=== PATIENT | female | born 1980 | race Caucasian/White ===

== ENCOUNTER 2018-05-12 01:45 | Outpatient (CLI) | payer OTHER, SELFPAY ==
[2018-05-12 11:21] LABS: Bilirubin Negative (Negative); Blood Moderate (Negative); Clarity Clear; Glucose Negative (Negative); Ketones Trace mg/dL (Negative); Leukocyte Esterase Negative (Negative); Nitrite Negative (Negative); Urobilinogen 0.2 EU/dL (Up TO 0.2)
[2018-05-12 11:23] LABS: Absolute Basophil Count 0.04 k/cumm (0.0-0.2); Absolute Eosinophil Count 0.39 k/cumm (0.0-0.7); Absolute Lymphocyte Count 1.63 k/cumm (1.2-3.4); Absolute Monocyte Count 0.41 k/cumm (0.11-0.7); Absolute Neutrophil Count 3.05 k/cumm (1.2-6.7); Basophils % 0.7; Eosinophils % 7.1; HCT 45.5 % (36.0-46.0); HGB 14.9 g/dL (12.0-15.5); Lymphocytes % 29.5; Mean Corp. HGB Concentration 32.7 g/dL (32.0-36.0); Mean Corpuscular Hemoglobin 30.2 pg (27.0-33.0); Mean Corpuscular Volume 92.1 fL (80-95); Mean Platelet Volume 10.1 fL (8.0-11.0); Monocytes % 7.4; Neutrophils % 55.3; Platelet Count 297 x1000/uL (130-400); RBC 4.94 m/cumm (4.00-5.20); RBC Distribution Width 13.3 % (11.7-14.6); White Blood Cell Count 5.52 k/cumm (4.4-10.8)
[2018-05-12 11:32] LABS: ALT 20 U/L (12-78); AST 15 U/L (15-37); Albumin 3.9 g/dL (3.4-5.0); Alkaline Phosphatase 66 U/L (46-116); Anion Gap 10.7 mmol/L (3-11); BUN 14 mg/dL (7-18); Bacteria Few HPF (Negative); Bilirubin, Total 0.5 mg/dL (0.2-1.0); CO2 25.3 mmol/L (21.0-32.0); CREATININE 1.01 mg/dL (0.55-1.02); Calcium 9.1 mg/dL (8.5-10.1); Casts Negative LPF (Negative); Chloride 104 mmol/L (98-107); Crystals Few Amorphous HPF (Negative); Epithelial Cells Moderate HPF (Negative); Glucose 91 mg/dL (70-100); Mucus Trace (Negative); Potassium 4.3 mmol/L (3.5-5.1); RBC 20-50 (0-2); Sodium 140 mmol/L (136-145); TSH (W/Ref FT4) 14.71 uIU/mL (0.358-3.74); Total Protein 6.9 g/dL (6.4-8.2); WBC 0-2 HPF (0-5)
[2018-05-12 11:33] LABS: C & S Indicated? Yes
[2018-05-12 11:49] LABS: FREE T4 0.78 ng/dL (0.76-1.46)
== END 2018-05-12 02:05 ==
PROVIDERS: PCP Family Medicine; Visit Provider Family Medicine
DX: R53.83 Other fatigue (principal)
CPT/HCPCS: 36415; 80053; 81003; 81015; 84439; 84443; 85025; 87086

== ENCOUNTER 2018-06-18 02:27 | Outpatient (CLI) | payer OTHER, SELFPAY ==
[2018-06-18 10:38] LABS: TSH 1.47 uIU/mL (0.358-3.74)
== END 2018-06-18 02:47 ==
PROVIDERS: PCP Family Medicine; Visit Provider Family Medicine
DX: E03.9 Hypothyroidism, unspecified (principal)
CPT/HCPCS: 36415; 84443

== ENCOUNTER 2018-10-15 18:19 | Emergency (ER) | payer OTHER, SELFPAY ==
[2018-10-15 18:24] VITALS: BP 108/93; PULSE 113; RESP 18; TEMP 36.5; O2SAT 97
--- NOTE | 2018-10-15 18:53 | W.ED.GENAD ---
Discharge Plan Disposition Patient Disposition: HOME Condition: Stable Discharge Details Chief Complaint: Headache Clinical Impression: Headache, Left facial pain Primary Care Provider: Johnny Sampson ED Provider: Coty West Home Meds and New Rx's Prescriptions: New amoxicillin-pot clavulanate [Augmentin] 875-125 mg tablet 1 tab PO BID 10 Days Qty: 20 RF: 0 fluticasone propionate [Flonase Allergy Relief] 50 mcg/actuation spray,suspension 1 spray YOGI DAILY Qty: 15.8 RF: 0 Continued medroxyprogesterone [Depo-Provera] 150 mg/mL suspension 150 mg IM Q 12 WEEKS Qty: 1 RF: 3 levothyroxine 100 mcg tablet 100 mcg PO DAILY Qty: 30 RF: 11 Discharge Instructions Instructions: Sinusitis (ED), General Headache (ED) Additional Instructions: Alternate Tylenol and Motrin as needed and directed for pain. Take the antibiotics until finished. Use the Flonase nasal spray as directed. Follow-up with your primary care doctor on Thursday for reevaluation. Return immediately to the emergency department with any worsening or new concerning symptoms per Discharge Data Discharge Date/Time-TO BE ENTERED AT DEPARTURE: 10/15/18 21:00 Discharge Physician: Coty West Medical Decision Making 38-year-old female with a history of hypothyroidism and fatigue who presents with left-sided frontal headache near her left inner eyebrow for the past 5 days. It is worse with bending forward and palpation. Denies fever, headache on the top of her head, neck pain. Vitals within normal limits. Heart rate on arrival 110s, but this improved to 80s during my evaluation in room. Patient appears uncomfortable but nontoxic. She has exquisite tenderness to palpation and mild edema to the left frontal sinus. She has bilateral photophobia but worse on the left. No other focal deficits. No meningeal signs. Discussed with patient at length that her presentation appears more consistent with a possible sinus source, but due to her photophobia, differential could possibly include migraine. Denies neck pain or diffuse head pain as it does not appear consistent with tension headache. She does admit to recent diarrhea and cutting back on her caffeine intake, so this possibly could be dehydration or vasodilation. She denies fever or neck pain and has no meningeal signs, so does not appear consistent with meningitis. She denies significant sudden onset or thunderclap quality so does not appear consistent with subarachnoid hemorrhage. Will place an IV, bolus IV fluids, labs, urine and CT head. Will give a dose of Compazine and Benadryl. Will hold on Toradol until CT head resulted. 1999 -- Pt feels a little better but still with some headache. Will finish 1 liter IVF and if CT head negative, will give dose of toradol. Case d/w pt that this could be sinus infection and if she improves and CT head negative, will discharge to home with augmentin and flonase. 1999 -- Case endorsed to Dr. Bedoya to follow-up on labs and CT imaging and patient response to medications with final disposition. HPI General Mode of arrival: ambulatory. Date/Time Provider Initiated Documentation: 10/15/18 18:21. Limitations to Documentation: no limitations. Information obtained by: patient. HPI Narrative: Patient is a 38-year-old female with a history of hypothyroidism, fatigue who presents with left frontal headache for the past 5 days. She describes it as a constant dull pressure and an intermittent squeezing pain that is within her left inner eyebrow. She states it is worse to palpation and when bending forward. She denies any history of headaches. She denies fever, nasal discharge, headache on the top of her head, neck pain, blurry vision, nausea, vomiting, unilateral numbness or weakness or rash. She has a history of sinus problems and states she took Claritin-D for this without relief. She also denies relief with Excedrin Migraine. She also states that she had been drinking 2-3 cups of coffee daily but that she cut back to 1 cup daily 1 week ago. Related Data Home Medications Medication Instructions Recorded Confirmed medroxyprogesterone 150 mg/mL 150 mg IM Q 12 WEEKS #1 vial 03/26/18 09/10/18 intramuscular suspension levothyroxine 100 mcg tablet 100 mcg PO DAILY #30 tab 05/21/18 09/10/18 amoxicillin-pot clavulanate 1 tab PO BID 10 Days #20 tab 10/15/18 [Augmentin] fluticasone propionate [Flonase 1 spray YOGI DAILY #15.8 gm 10/15/18 Allergy Relief] Previous Rx's Medication Instructions Recorded medroxyprogesterone 150 mg/mL 150 mg IM Q 12 WEEKS #1 vial 03/26/18 intramuscular suspension levothyroxine 100 mcg tablet 100 mcg PO DAILY #30 tab 05/21/18 amoxicillin-pot clavulanate 1 tab PO BID 10 Days #20 tab 10/15/18 [Augmentin] fluticasone propionate [Flonase 1 spray YOGI DAILY #15.8 gm 10/15/18 Allergy Relief] Allergies Allergy/AdvReac Type Severity Reaction Status Date / Time No Known Allergies Allergy Unverified 09/10/18 15:07 General Stated Complaint: Headache JOHNNY: 3 Review of Systems Review of Systems All systems reviewed & are unremarkable except as noted in HPI and below Constitutional Reports as per HPI, Denies chills, Denies fever(s) and Reports headache(s) Eyes Denies blurry vision ENT Denies dizziness, Reports headache(s), Denies sore throat and Denies throat swelling Cardiovascular Denies chest pain and Denies dyspnea Respiratory Denies cough and Denies dyspnea Gastrointestinal Denies abdominal pain, Denies diarrhea and Denies vomiting Genitourinary Denies hematuria and Denies dysuria Musculoskeletal Denies back pain and Denies numbness Integumentary/Breasts Denies lesions and Denies rash Neurologic Denies dizziness, Reports headache(s), Denies focal weakness and Denies numbness Allergic/Immunologic Denies throat swelling [facility] Medical History Hypothyroidism (Chronic) Fatigue (Acute) Contraceptive surveillance (Acute) Surgical History History of pyloric stenosis as a child (Acute) Family History Mother Thyroid disorder Social History Smoking/Tobacco Use Status: Never Alcohol Intake: never Substance use type: does not use Do you feel safe at home: Yes Do you feel safe in your relationship?: Yes History History 4 Para 2 Hx # Term Pregnancies Multiple births Hx # Pregnancies Ectopic pregnancies AB induced 1 Hx Number of Living Children 2 AB spontaneous 1 Exam Const General: cooperative and healthy appearing Orientation: alert and awake HENMT Head: normal to inspection Ears: hearing grossly normal bilaterally, external ears normal and TM's normal bilaterally General nose exam: external nose normal Face and sinus: sinuses nontender (exquisitely tender with mild edema L frontal sinus) Mouth: oral mucosae normal Teeth and gingiva: dentition normal Throat: posterior oropharynx normal Eyes General: appearance normal, both eyes and all related structures Eyelids: eyelids normal Pupils: PERRL EOM: EOM intact bilaterally Direct ophthalmoscopy: photophobia (bilateral, worse on left) Neck Neck: normal visual inspection Lymphatic: no lymphadenopathy noted Chest Chest: normal inspection of the chest Resp Effort & Inspection: normal respiratory effort and able to speak in complete sentences Auscultation: clear to auscultation bilaterally Cardio Rate: regular rate Rhythm: regular rhythm GI Inspection: normal to inspection Palpation: soft, not firm, no guarding, no hepatosplenomegaly, no masses and nontender Auscultation: normal bowel sounds Skin General skin exam: no rashes or lesions noted Neuro General: alert, awake, oriented x3, moves all extremities, no meningeal signs and no focal motor deficits Cognition: normal cognition Speech: speech normal Gait: normal gait Motor: muscle tone normal throughout and strength 5/5 throughout Sensory Exam: no sensory deficits noted Extrem General: normal to inspection, full ROM and normal capillary refill Psych Appearance: grossly normal Mental Status: mental status grossly normal Speech and Movement: speech and movement normal Affect: normal affect Thought Process: normal Course Vital Signs Temperature 97.7 F 10/15/18 18:24 Pulse 113 H 10/15/18 18:24 Respiratory Rate 18 10/15/18 18:24 Blood Pressure 108/93 H 10/15/18 18:24 Pulse Oximetry 97 10/15/18 18:24 Temperature 97.7 F 10/15/18 18:24 Temperature Source Temporal Artery Scan 10/15/18 18:24 Pulse 113 H 10/15/18 18:24 Respiratory Rate 18 10/15/18 18:24 Respiratory Effort Non-Labored 10/15/18 18:27 Blood Pressure 108/93 H 10/15/18 18:24 Blood Pressure Position Sitting 10/15/18 18:24 Pulse Oximetry 97 10/15/18 18:24 Oxygen Delivery Method Room Air 10/15/18 18:24 Oxygen Flow Rate 0 10/15/18 18:24 Pain Level 4 10/15/18 18:24
--- NOTE | 2018-10-15 18:56 | ED.GENADUL_ITS ---
Discharge Plan Disposition Patient Disposition: HOME Condition: Stable Discharge Details Chief Complaint: Headache Clinical Impression: Headache, Left facial pain Primary Care Provider: Johnny Sampson ED Provider: Coty [facility] Home Meds and New Rx's Prescriptions: New amoxicillin-pot clavulanate [Augmentin] 875-125 mg tablet 1 tab PO BID 10 Days Qty: 20 RF: 0 fluticasone propionate [Flonase Allergy Relief] 50 mcg/actuation spray,suspension 1 spray YOGI DAILY Qty: 15.8 RF: 0 Continued medroxyprogesterone [Depo-Provera] 150 mg/mL suspension 150 mg IM Q 12 WEEKS Qty: 1 RF: 3 levothyroxine 100 mcg tablet 100 mcg PO DAILY Qty: 30 RF: 11 Discharge Instructions Instructions: Sinusitis (ED), General Headache (ED) Additional Instructions: Alternate Tylenol and Motrin as needed and directed for pain. Take the antibiotics until finished. Use the Flonase nasal spray as directed. Follow-up with your primary care doctor on Thursday for reevaluation. Return immediately to the emergency department with any worsening or new concerning symptoms per Discharge Data Discharge Date/Time-TO BE ENTERED AT DEPARTURE: 10/15/18 21:00 Discharge Physician: Coty West Medical Decision Making 38-year-old female with a history of hypothyroidism and fatigue who presents with left-sided frontal headache near her left inner eyebrow for the past 5 day s. It is worse with bending forward and palpation. Denies fever, headache on the top of her head, neck pain. Vitals within normal limits. Heart rate on arrival 110s, but this improved to 80s during my evaluation in room. Patient appears uncomfortable but nontoxic. She has exquisite tenderness to palpation and mild edema to the left frontal sinus. She has bilateral photophobia but worse on the left. No other focal deficits. No meningeal signs. Discussed with patient at length that her presentation appears more consistent with a possible sinus source, but due to her photophobia, differential could possibly include migraine. Denies neck pain or diffuse head pain as it does not appear consistent with tension headache. She does admit to recent diarrhea and cutting back on her caffeine intake, so this possibly could be dehydration or vasodilation. She denies fever or neck pain and has no meningeal signs, so does not appear consistent with meningitis. She denies significant sudden onset or thunderclap quality so does not appear consistent with subarachnoid hemorrhage. Will place an IV, bolus IV fluids, labs, urine and CT head. Will give a dose of Compazine and Benadryl. Will hold on Toradol until CT head resulted. 1999 -- Pt feels a little better but still with some headache. Will finish 1 liter IVF and if CT head negative, will give dose of toradol. Case d/w pt that this could be sinus infection and if she improves and CT head negative, will discharge to home with augmentin and flonase. 1999 -- Case endorsed to Dr. Bedoya to follow-up on labs and CT imaging and patient response to medications with final disposition. HPI General Mode of arrival: ambulatory . Date/Time Provider Initiated Documentation: 10/15/18 18:21 . Limitations to Documentation: no limitations . Information obtained by: patient . HPI Narrative: Patient is a 38-year-old female with a history of hypothyroidism, fatigue who presents with left frontal headache for the past 5 days. She describes it as a constant dull pressure and an intermittent squeezing pain that is within her left inner eyebrow. She states it is worse to palpation and when bending forward. She denies any history of headaches. She denies fever, nasal discharge, headache on the top of her head, neck pain, blurry vision, nausea, vomiting, unilateral numbness or weakness or rash. She has a history of sinus problems and states she took Claritin-D for this without relief. She also denies relief with Excedrin Migraine. She also states that she had been drinking 2-3 cups of coffee daily but that she cut back to 1 cup daily 1 week ago. Related Data Home Medications Medication Instructions Recorded Confirmed medroxyprogesterone 150 mg/mL 150 mg IM Q 12 WEEKS #1 vial 03/26/18 09/10/18 intramuscular suspension levothyroxine 100 mcg tablet 100 mcg PO DAILY #30 tab 05/21/18 09/10/18 amoxicillin-pot clavulanate 1 tab PO BID 10 Days #20 tab 10/15/18 [Augmentin] fluticasone propionate [Flonase 1 spray YOGI DAILY #15.8 gm 10/15/18 Allergy Relief] Previous Rx's Medication Instructions Recorded medroxyprogesterone 150 mg/mL 150 mg IM Q 12 WEEKS #1 vial 03/26/18 intramuscular suspension levothyroxine 100 mcg tablet 100 mcg PO DAILY #30 tab 05/21/18 amoxicillin-pot clavulanate 1 tab PO BID 10 Days #20 tab 10/15/18 [Augmentin] fluticasone propionate [Flonase 1 spray YOGI DAILY #15.8 gm 10/15/18 Allergy Relief] Allergies Allergy/AdvReac Type Severity Reaction Status Date / Time No Known Allergies Allergy Unverified 09/10/18 15:07 General Stated Complaint: Headache JOHNNY: 3 Review of Systems Review of Systems All systems reviewed & are unremarkable except as noted in HPI and below Constitutional Reports as per HPI, Denies chills, Denies fever(s) and Reports headache(s) Eyes Denies blurry vision ENT Denies dizziness, Reports headache(s), Denies sore throat and Denies throat swelling Cardiovascular Denies chest pain and Denies dyspnea Respiratory Denies cough and Denies dyspnea Gastrointestinal Denies abdominal pain, Denies diarrhea and Denies vomiting Genitourinary Denies hematuria and Denies dysuria Musculoskeletal Denies back pain and Denies numbness Integumentary/Breasts Denies lesions and Denies rash Neurologic Denies dizziness, Reports headache(s), Denies focal weakness and Denies numbness Allergic/Immunologic Denies throat swelling [facility] Medical History Hypothyroidism (Chronic) Fatigue (Acute) Contraceptive surveillance (Acute) Surgical History History of pyloric stenosis as a child (Acute) Family History Mother Thyroid disorder Social History Smoking/Tobacco Use Status: Never Alcohol Intake: never Substance use type: does not use Do you feel safe at home: Yes Do you feel safe in your relationship?: Yes History History 4 Para 2 Hx # Term Pregnancies Multiple births Hx # Pregnancies Ectopic pregnancies AB induced 1 Hx Number of Living Children 2 AB spontaneous 1 Exam Const General: cooperative and healthy appearing Orientation: alert and awake HENAK Head: normal to inspection Ears: hearing grossly normal bilaterally, external ears normal and TM's normal bilaterally General nose exam: external nose normal Face and sinus: sinuses nontender (exquisitely tender with mild edema L frontal sinus) Mouth: oral mucosae normal Teeth and gingiva: dentition normal Throat: posterior oropharynx normal Eyes General: appearance normal, both eyes and all related structures Eyelids: eyelids normal Pupils: PERRL EOM: EOM intact bilaterally Direct ophthalmoscopy: photophobia (bilateral, worse on left) Neck Neck: normal visual inspection Lymphatic: no lymphadenopathy noted Chest Chest: normal inspection of the chest Resp Effort & Inspection: normal respiratory effort and able to speak in complete sentences Auscultation: clear to auscultation bilaterally Cardio Rate: regular rate Rhythm: regular rhythm GI Inspection: normal to inspection Palpation: soft, not firm, no guarding, no hepatosplenomegaly, no masses and nontender Auscultation: normal bowel sounds Skin General skin exam: no rashes or lesions noted Neuro General: alert, awake, oriented x3, moves all extremities, no meningeal signs and no focal motor deficits Cognition: normal cognition Speech: speech normal Gait: normal gait Motor: muscle tone normal throughout and strength 5/5 throughout Sensory Exam: no sensory deficits noted Extrem General: normal to inspection, full ROM and normal capillary refill Psych Appearance: grossly normal Mental Status: mental status grossly normal Speech and Movement: speech and movement normal Affect: normal affect Thought Process: normal Course Vital Signs Temperature 97.7 F 10/15/18 18:24 Pulse 113 H 10/15/18 18:24 Respiratory Rate 18 10/15/18 18:24 Blood Pressure 108/93 H 10/15/18 18:24 Pulse Oximetry 97 10/15/18 18:24 Temperature 97.7 F 10/15/18 18:24 Temperature Source Temporal Artery Scan 10/15/18 18:24 Pulse 113 H 10/15/18 18:24 Respiratory Rate 18 10/15/18 18:24 Respiratory Effort Non-Labored 10/15/18 18:27 Blood Pressure 108/93 H 10/15/18 18:24 Blood Pressure Position Sitting 10/15/18 18:24 Pulse Oximetry 97 10/15/18 18:24 Oxygen Delivery Method Room Air 10/15/18 18:24 Oxygen Flow Rate 0 10/15/18 18:24 Pain Level 4 10/15/18 18:24
[2018-10-15] MEDS: diphenhydrAMINE 50 MG/ML VIAL 25 MG IVP (19:36)
[2018-10-15] MEDS: Prochlorperazine 10 MG/2 ML VIAL IVP (19:36)
[2018-10-15] MEDS: Normal Saline 1,000 ML 1000 ML IV (19:40)
[2018-10-15 19:51] LABS: Abs Immature Grans 0.02 k/cumm (0.0-0.09); HCT 44.6 % (36.0-46.0); HGB 14.7 g/dL (12.0-15.5); Mean Corpuscular Hemoglobin 29.6 pg (27.0-33.0); Mean Corpuscular Volume 89.7 fL (80-95); Mean Platelet Volume 9.5 fL (8.0-11.0); Platelet Count 335 x1000/uL (130-400); RBC 4.97 m/cumm (4.00-5.20); RBC Distribution Width 13.1 % (11.7-14.6); White Blood Cell Count 9.95 k/cumm (4.4-10.8)
[2018-10-15 19:52] LABS: Anion Gap 9.6 mmol/L (3-11); BUN 13 mg/dL (7-18); CO2 26.4 mmol/L (21.0-32.0); CREATININE 0.89 mg/dL (0.55-1.02); Calcium 8.9 mg/dL (8.5-10.1); Chloride 104 mmol/L (98-107); Glucose 95 mg/dL (70-100); Sodium 140 mmol/L (136-145)
--- NOTE | 2018-10-15 19:53 | DI.CT_ITS ---
SYMPTOM/DIAGNOSIS: LT SIDED HEADACHE, PAIN LT FRONTAL SINUS NONCONTRAST HEAD CT: There is a normal davis white matter differentiation. No evidence of an acute infarct, hemorrhage, midline shift or mass effect is identified. The ventricles are intact. The basilar cisterns are patent. There is mucosal thickening seen in the frontal sinuses bilaterally. There is opacification of several ethmoid air cells bilaterally, right greater than left. The sphenoid sinuses and maxillary sinuses are clear as are the mastoid air cells. The calvarium is intact. IMPRESSION: 1. No acute intracranial process. 2. Paranasal sinusitis.
[2018-10-15 20:07] LABS: Absolute Lymphocyte Count 3.08 k/cumm (1.2-3.4); Absolute Neutrophil Count 6.07 k/cumm (1.2-6.7); Atypical Lymphocytes % 7
[2018-10-15 20:09] LABS: Diff Comment Manual Differential; RBC Morphology Normal
--- NOTE | 2018-10-15 20:22 | DI.VRAD_ITS ---
EXAM: CT Head Without Contrast EXAM DATE/TIME: 10/15/2018 7:29 PM CLINICAL HISTORY: 38 years old, female; Pain; Headache TECHNIQUE: Imaging protocol: Axial computed tomography images of the head/brain without contrast. Coronal and sagittal reformatted images were created and reviewed. Radiation optimization: All CT scans at this facility use at least one of these dose optimization techniques: automated exposure control; mA and/or kV adjustment per patient size (includes targeted exams where dose is matched to clinical indication); or iterative reconstruction. COMPARISON: No relevant prior studies available. FINDINGS: Brain: Normal. No hemorrhage. No significant white matter disease. No edema. Ventricles: Normal. No ventriculomegaly. Bones/joints: Unremarkable. No acute fracture. Sinuses: There is fluid within the sinuses, consistent with sinusitis. Mastoid air cells: Visualized mastoid air cells are unremarkable. No mastoid effusion. Orbits: Unremarkable. Soft tissues: Unremarkable. IMPRESSION: 1. Negative for acute intracranial pathology. 2. Sinusitis. Dictated and Authenticated by: Delfino Sierra MD. Ordering:SHAWN Ansari MD
[2018-10-15] MEDS: Ketorolac 15 MG/ML VIAL IVP (20:34)
[2018-10-15] MEDS: methylPREDNISolone SUCC 125 MG VIAL IVP (20:34)
[2018-10-15] MEDS: Normal Saline Flush 10 ML SYR IVP (20:39)
[2018-10-15 20:40] VITALS: BP 101/64; PULSE 51; RESP 16; O2SAT 95
== END 2018-10-15 21:00 | disposition home or self-care (01) ==
PROVIDERS: Emergency Provider Physician Assistant; PCP Family Medicine
DX: R51 Headache (principal)
CPT/HCPCS: 36415; 80048; 81025; 96361; 96374; 96375; 99284; 70450; 85025; J0780; J1200; J1885; J2930

== ENCOUNTER 2019-06-02 11:20 | Outpatient (CLI) | payer OTHER, SELFPAY ==
[2019-06-02 13:20] LABS: TSH 1.45 uIU/mL (0.36-3.74)
== END 2019-06-02 11:40 ==
PROVIDERS: PCP Family Medicine; Visit Provider Family Medicine
DX: E03.9 Hypothyroidism, unspecified (principal)
CPT/HCPCS: 36415; 84443

== ENCOUNTER 2019-08-16 09:23 | Outpatient (CLI) | payer OTHER, SELFPAY ==
[2019-08-16 10:57] LABS: HCT 47.2 % (36.0-46.0); HGB 15.3 g/dL (12.0-15.5); Mean Corp. HGB Concentration 32.4 g/dL (32.0-36.0); Mean Corpuscular Hemoglobin 29.5 pg (27.0-33.0); Mean Corpuscular Volume 91.1 fL (80-95); Mean Platelet Volume 9.7 fL (8.0-11.0); Platelet Count 314 x1000/uL (130-400); RBC 5.18 m/cumm (4.00-5.20); RBC Distribution Width 12.8 % (11.7-14.6); White Blood Cell Count 5.41 k/cumm (4.4-10.8)
[2019-08-16 11:20] LABS: ALT 26 U/L (14-59); AST 16 U/L (15-37); Alkaline Phosphatase 69 U/L (46-116); Anion Gap 5.9 mmol/L (3-11); BUN 12 mg/dL (7-18); Bilirubin, Total 0.4 mg/dL (0.2-1.0); CO2 29.1 mmol/L (21.0-32.0); CREATININE 0.91 mg/dL (0.55-1.02); Calcium 8.8 mg/dL (8.5-10.1); Chloride 106 mmol/L (98-107); FREE T4 1.32 ng/dL (0.76-1.46); Glucose 85 mg/dL (74-106); Potassium 4.6 mmol/L (3.5-5.1); Sodium 141 mmol/L (136-145); Total Protein 6.8 g/dL (6.4-8.2)
[2019-08-16 17:33] LABS: T3,Free 3.9 pg/mL (2.8-5.3)
== END 2019-08-16 09:43 ==
PROVIDERS: PCP Family Medicine; Visit Provider Family Medicine
DX: E03.9 Hypothyroidism, unspecified (principal); R53.83 Other fatigue
CPT/HCPCS: 36415; 80053; 85027; 84439; 84443; 84481

== ENCOUNTER 2020-10-16 13:58 | Outpatient (REF) | payer OTHER, SELFPAY ==
--- NOTE | 2020-10-16 13:15 | PAPFT_PTH ---
PATIENT: Sarah Castellano LOC: [facility] U#:[id number] AGE/SX: 40/F ROOM: RE10/16/[address]: GABY Gonzales : 1980 BED: DIS: 10/16/2020 SPEC #: [id number] RECD: 10/16/20 17:41 STATUS: BENNY REQ #: [id number] TERRANCE: 10/16/20 13:[address]: Cate Judge DEPT: [facility] Cytology RECD BY: Gisselle Mccartney ENTERED: 10/16/20 17:41 SP TYPE: PAPFT OTHR DR: Johnny Sampson MD Tissues: 1 - CX/ENDOCX FOR PAP SMEARS Procedures: PAP THIN PREP/[facility] Screening HPV DNA PROBE Comments: [id number]
== END 2020-10-16 13:59 | disposition home or self-care (01) ==
LOC: LBN 13:58
PROVIDERS: PCP Family Medicine; Visit Provider Nurse Practitioner Family
DX: Z12.4 Encounter for screening for malignant neoplasm of cervix (principal); Z11.51 Encounter for screening for human papillomavirus (HPV)
CPT/HCPCS: 88142; 87624

== ENCOUNTER 2020-11-01 03:58 | Outpatient (CLI) | payer OTHER, SELFPAY ==
[2020-11-01 12:37] LABS: TSH 1.05 uIU/mL (0.36-3.74)
== END 2020-11-01 03:59 | disposition home or self-care (01) ==
LOC: LBO 03:58
PROVIDERS: Family Medicine; PCP Family Medicine; Visit Provider Family Medicine
DX: E03.9 Hypothyroidism, unspecified (principal)
CPT/HCPCS: 36415; 84443

== ENCOUNTER 2021-10-04 03:36 | Outpatient (CLI) | payer OTHER, SELFPAY ==
[2021-10-04 09:14] LABS: Anion Gap 10.2 mmol/L (3-11); BUN 14 mg/dL (7-18); CO2 22.8 mmol/L (21.0-32.0); CREATININE 0.9 mg/dL (0.55-1.02); Calcium 8.8 mg/dL (8.5-10.1); Calculated LDL 102 mg/dL (<100); Chloride 109 mmol/L (98-107); Cholesterol 159 mg/dL (<200); Glucose 93 mg/dL (74-106); HDL Cholesterol 51 mg/dL (40-60); Potassium 4.3 mmol/L (3.5-5.1); Sodium 142 mmol/L (136-145); TSH (W/Ref FT4) 1.91 uIU/mL (0.36-3.74); Triglyceride 34 mg/dL (<150)
[2021-10-07 05:29] LABS: Vitamin D 25 Total 52.1 ng/mL (30-100)
[2021-10-07 11:34] LABS: Hepatitis C Ab w Rflx HCV PCR Negative (Negative)
== END 2021-10-04 03:37 | disposition home or self-care (01) ==
LOC: LBO 03:37
PROVIDERS: PCP Family Medicine; Visit Provider Family Medicine
DX: E03.9 Hypothyroidism, unspecified (principal); Z00.00 Encounter for general adult medical examination without abnormal findings; I10 Essential (primary) hypertension
CPT/HCPCS: 36415; 80048; 80061; 82306; 86803; 84443

== ENCOUNTER 2022-08-28 00:47 | Outpatient (CLI) | payer OTHER, SELFPAY ==
--- NOTE | 2022-08-28 08:15 | DI.MAMMO_ITS ---
Exam(s) MAMMO SCREENING EXAM: MAMMO SCREENING CLINICAL HISTORY: screening,z12.39. TECHNIQUE: Bilateral full field digital CC and MLO mammographic images were obtained with 3D tomosyn thesis and utilizing computer aided detection (CAD). COMPARISON: None. Baseline mammogram on 42-year-old patient. FINDINGS: There are no new spiculated masses nor malignant appearing microcalcification groups. There is no significant architectural distortion nor skin thickening-retraction. IMPRESSION: No radiographic evidence of malignancy. BI-RADS Category 1 - Negative Breast Density - Category B - Scattered areas of fibroglandular density Breast density Category C or D implies that the patient has dense breast tissue. Dense breast tissue can make it harder to find cancer on a mammogram. Dense breast tissue is also associated with an incr eased risk of breast cancer. This information about the result of the mammogram report was provided to the patient to raise their awareness. Use this report when you speak with the patient about their risks for breast cancer, which includes their family history. At that time, you may recommend additional screening tests (Ultrasoun d or MRI) as these tests may add significant information. A negative radiographic report should not delay biopsy if a dominant or clinically suspicious mass is present. Up to ten percent of cancers are not identified on mammography. A negative report may reinforce clinical impression. Adenosis and dense breasts may obscure an underlying neoplasm. False positive reports average 6 to 10%. Patient will receive a letter notifying them of these results.
== END 2022-08-28 01:07 ==
LOC: DI 00:47
PROVIDERS: PCP Family Medicine; Visit Provider Nurse Practitioner Family
DX: Z12.31 Encounter for screening mammogram for malignant neoplasm of breast (principal)
CPT/HCPCS: 77063; 77067

== ENCOUNTER 2022-08-28 02:20 | Outpatient (CLI) | payer OTHER, SELFPAY ==
[2022-08-28 07:41] LABS: HCT 45.3 % (36.0-46.0); HGB 14.8 g/dL (11.2-15.7); MCH 29.4 pg (27.0-33.0); MCHC 32.7 % (32.0-36.0); MCV 90 fL (80-95); MPV 9.4 fL (8.0-11.0); Platelet Count 300 10^3/uL (130-400); RBC 5.03 10^6/uL (3.93-5.22); RDW 12.4 % (11.7-14.6); RDW-SD 41.1 fL; WBC 4.86 10^3/uL (4.4-10.8)
[2022-08-28 08:21] LABS: Anion Gap 8.8 mmol/L (3-11); BUN 16 mg/dL (7-18); CO2 23.2 mmol/L (21.0-32.0); CREATININE 1.1 mg/dL (0.55-1.02); Chloride 109 mmol/L (98-107); Estimated GFR 65.14 (mL/min/1.73m2); Glucose 113 mg/dL (74-106); Sodium 141 mmol/L (136-145); TSH (W/Ref FT4) 0.35 uIU/mL (0.36-3.74)
[2022-08-28 08:39] LABS: FREE T4 1.46 ng/dL (0.76-1.46)
== END 2022-08-28 02:21 | disposition home or self-care (01) ==
LOC: LBO 02:20
PROVIDERS: Nurse Practitioner Family; PCP Family Medicine; Visit Provider Family Medicine
DX: E03.9 Hypothyroidism, unspecified (principal); R53.83 Other fatigue; R63.5 Abnormal weight gain; Z00.00 Encounter for general adult medical examination without abnormal findings
CPT/HCPCS: 36415; 80048; 85027; 84439; 84443

== ENCOUNTER 2022-10-20 14:43 | Outpatient (CLI) | payer OTHER, SELFPAY ==
[2022-10-20 12:06] LABS: HCT 44.2 % (36.0-46.0); MCH 30.1 pg (27.0-33.0); MCHC 33.9 % (32.0-36.0); MCV 89 fL (80-95); Platelet Count 381 10^3/uL (130-400); RBC 4.98 10^6/uL (3.93-5.22); RDW 12.1 % (11.7-14.6); RDW-SD 39.7 fL; WBC 8.15 10^3/uL (4.4-10.8)
[2022-10-20 12:17] LABS: Anion Gap 8.4 mmol/L (3-11); BUN 14 mg/dL (7-18); CO2 23.6 mmol/L (21.0-32.0); CREATININE 0.9 mg/dL (0.55-1.02); Chloride 107 mmol/L (98-107); Estimated GFR 82.88 (mL/min/1.73m2); Glucose 104 mg/dL (74-106); Potassium 4.1 mmol/L (3.5-5.1); Sodium 139 mmol/L (136-145)
== END 2022-10-20 14:44 | disposition home or self-care (01) ==
LOC: LBO 14:44
PROVIDERS: PCP Family Medicine; Visit Provider Obstetrics & Gynecology Gynecology
DX: Z01.818 Encounter for other preprocedural examination (principal)
CPT/HCPCS: 36415; 80048; 85027; 86850; 86900; 86901

== ENCOUNTER 2022-10-22 09:10 | Day surgery (SDC) | payer OTHER, SELFPAY ==
[2022-10-22] VITALS (10 sets, daily range): BP systolic 91–112; BP diastolic 54–81; PULSE 66–77; RESP 15–23; TEMP 36.4–36.6; O2SAT 95–100; BMI 31.4
--- NOTE | 2022-10-22 09:25 | W.ANESPRE ---
General Info Date of Service Date Performed: 10/22/22 Height: 5 ft 7 in Weight: 90.945 kg Body Mass Index (BMI): 31.4 Surgical Procedure: Operation Date: 10/22/22 13:25 Proposed Procedure Side Surgeon p Salpingectomy Laparoscopic Bilateral Maria M Leon MD Meds Allergies and Home Medications Allergies Allergy/AdvReac Type Severity Reaction Status Date / Time No Known Allergies Allergy Verified 10/22/22 09:35 Home Medication Medication Instructions Recorded calcium citrate 500 mg PO DAILY 08/19/19 fluticasone propionate 50 1 spray intranasal BID PRN 02/03/20 mcg/actuation nasal spray,suspension (Flonase Allergy Relief) levothyroxine 100 mcg tablet 100 mcg PO DAILY #30 tabs 07/23/22 citalopram 10 mg tablet (Celexa) 10 mg PO DAILY #90 tabs 09/26/22 loratadine 10 mg tablet (Claritin) 10 mg PO DAILY 10/21/22 PFSH Active Problems Active Problems: Problem Status Onset Code Preop examination Z01.818 Screening and evaluation for female sterilization Z30.09 Depression F32.A Encounter for Depo-Provera contraception Z30.42 Hypothyroidism ~2018 E03.9 Contraceptive surveillance Z30.40 Medical History Medical History COVID-19 (~07/20/21) Surgical History Surgical History History of pyloric stenosis as a child with repair Tobacco Smoking/Tobacco Use Status: Never Second hand exposure: Yes Alcohol Alcohol Intake: current Alcohol intake frequency: a few times a week Alcohol type: hard liquor Substance Use Substance use: Never Substance use type: does not use Prental History History 4 Para 2 Hx # Term Pregnancies Multiple births Hx # Pregnancies Ectopic pregnancies AB induced 1 Hx Number of Living Children 2 AB spontaneous 1 Vital Signs and Lab Results Vital Signs Most Recent Vital Signs in EMR: Temp Pulse Resp BP Pulse Ox 36.6 C 66 16 112/75 99 10/22/22 09:10 10/22/22 09:10 10/22/22 09:10 10/22/22 09:10 10/22/22 09:10 Lab Results Blood Type / Crossmatch: Patient ABO/Rh O Positive 10/20/22 Antibody Screen NEGATIVE 10/20/22 Complete Blood Count: White Blood Count 8.15 10^3/uL (4.4-10.8) 10/20/22 12:00 Red Blood Count 4.98 10^6/uL (3.93-5.22) 10/20/22 12:00 Hemoglobin 15.0 g/dL (11.2-15.7) 10/20/22 12:00 Hematocrit 44.2 % (36.0-46.0) 10/20/22 12:00 Platelet Count 381 10^3/uL (130-400) 10/20/22 12:00 Complete Metabolic Panel: Sodium 139 mmol/L (136-145) 10/20/22 12:00 Potassium 4.1 mmol/L (3.5-5.1) 10/20/22 12:00 Chloride 107 mmol/L (98-107) 10/20/22 12:00 Carbon Dioxide 23.6 mmol/L (21.0-32.0) 10/20/22 12:00 BUN 14 mg/dL (7-18) 10/20/22 12:00 Creatinine 0.9 mg/dL (0.55-1.02) 10/20/22 12:00 Est GFR (CKD-EPI 2020) 82.88 (mL/min/1.73m2) 10/20/22 12:00 Calcium 9.0 mg/dL (8.5-10.1) 10/20/22 12:00 Glucose 104 mg/dL (74-106) 10/20/22 12:00 Liver Function Panel: No Data to Display Coagulation Panel: No Data to Display Cardiac Panel: No Data to Display Arterial Blood Gas: No Data to Display Venous Blood Gas: No Data to Display Pancreas Panel: No Data to Display Thyroid Panel: No Data to Display Infectious Disease: No Data to Display Blood Cultures: No Data to Display Toxicology Panel: No Data to Display Panel: No Data to Display Anesthesia Assessment and Plan Anesthesia History Personal History: No History of Anesthesia Complications Family History: No Family History of Anesthesia Complications Exercise Tolerance Exercise Tolerance: Metabolic Equivalents>4 Cardiac & Pulmonary Exam Cardiac Exam: Normal S1/S2 Heart Sounds Pulmonary Exam: Clear Bilateral Breath Sounds Implantable Cardiac Device Does patient have a Pacemaker or an ICD?: No Airway Exam Known Difficult Airway: No Mallampati Class: 2 Mouth Opening: Narrow (< 3cm) Thyromental Distance: Greater than 3 cm Neck Range of Motion: Full ROM Neck Circumference: Normal Teeth Condition: Normal Dentition ASA Classification ASA Score: ASA 2 Emergency Case?: No NPO Status NPO Status: NPO Clears >2 hours, Solids >8 hours Status Status: Negative HCG Anesthesia Plan Resuscitation Status: Full Code Anesthesia Technique: General Anesthesia Airway Planned: Endotracheal Tube Monitors Used: Standard Monitors Preoperative Comments:: 42 yo female for lap salping. Sig PMHx: hypothyroid (on replacement), depression (citalopram), never smoker, occ EtOH.
[2022-10-22] MEDS: Lactated Ringers 1,000 ML 125 ML IV (10:12)
--- NOTE | 2022-10-22 14:17 | FALL_PTH ---
PATIENT: Sarah Castellano LOC: [facility] U#:[id number] AGE/SX: 42/F ROOM: RE10/22/[address]: Maria M Leon : 1980 BED: DIS: 10/22/2022 SPEC #: [id number] RECD: 10/22/22 16:49 STATUS: BENNY RENeeta #: [id number] TERRANCE: 10/22/22 14:[address]: Maria M Leon DEPT: Surgical Specimen RECD BY: Gisselle Mccartney ENTERED: 10/22/22 16:49 SP TYPE: Fall OTHR DR: Melina Mckeon Tissues: 1 - FALLOPIAN TUBE (STERILIZATION) 2 - FALLOPIAN TUBE (STERILIZATION) Procedures: GROSS AND MICRO LEVEL 2 Comments: [id number]
[2022-10-22] MEDS: Bupivacaine 0.25% Pres-Free 30 ML VIAL (14:20)
--- NOTE | 2022-10-22 14:31 | W.PM.DSUDISC ---
Date of service: 10/22/22 Time of Service: 14:31 Discharge Plan Disposition Patient Disposition: Home Discharge Details Reason For Visit: Undesired fertility Attending Provider: Maria M Leon Primary Care Provider: Melina Mckeon Home Meds and New Rx's Prescriptions: No Action fluticasone propionate [Flonase Allergy Relief] 50 mcg/actuation spray,suspension 1 spray YOGI BID PRN Rx Instructions: administer into each nostril medroxyprogesterone [Depo-Provera] 150 mg/mL syringe 150 mg IM ONCE Qty: 1 0RF citalopram [Celexa] 10 mg tablet 10 mg PO DAILY Qty: 90 3RF calcium citrate 250 mg calcium tablet 500 mg PO DAILY levothyroxine 100 mcg tablet 100 mcg PO DAILY Qty: 30 5RF loratadine [Claritin] 10 mg Tablet 10 mg PO DAILY Discharge Instructions Additional Instructions: Keep the tape over your incisions on for 48 hours. It is okay to get the incisions wet. I have sent a prescription to your pharmacy for Percocet 5/325 1 to 2 tablets every 6 hours as needed for pain. You may take the Percocet along with ibuprofen 600 mg of [id number] Motrin every 6 hours. You May have some bleeding from your uterus. That will stop in 2 to 3 days. Keep your appoint with Dr. Leon in approximately 2 weeks. 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
--- NOTE | 2022-10-22 15:03 | W.ANESPOSTOP ---
Postoperative Evaluation Date, Time and Location Date Performed: 10/22/22 Time Performed: 15:04 Patient Location: PACU Vital Signs Most Recent Imported Vital Signs: Most Recent Vital Signs Temp Pulse Resp BP Pulse Ox 36.5 C 70 18 109/76 96 10/22/22 14:55 10/22/22 15:00 10/22/22 15:00 10/22/22 15:00 10/22/22 15:00 Pain Score Most Recent Pain Score: Most Recent Pain Score Pain Level 4 10/22/22 15:00 Assessment Mental Status: Awake (Alert & Oriented to Patient Baseline) Airway and Respiratory Function: Patent airway with normal (patient baseline) respiratory exam Cardiovascular Function: Hemodynamically Stable Hydration Status: Adequately Hydrated Nausea & Vomiting: No Nausea or Vomiting Pain: Pain is tolerable per patient Peripheral Nerve Block: Patient did not receive a nerve block
[2022-10-22] MEDS: HYDROmorphone 2 MG/ML SYR IVP (15:06)
--- NOTE | 2022-10-22 16:30 | ROE_ITS ---
Date of service: 10/22/22 Time of Service: 16:30 Operative Note Operative Note DATE OF PROCEDURE: 10/22/22 PRE-OP DIAGNOSIS: undesired fertility POST-OP DIAGNOSIS: same PROCEDURE: Laparoscopic bilateral salpingectomy SURGEON: Maria M Leon ASSISTING SURGEON: Ada Hauser Refer to Anesthesia Record ESTIMATED BLOOD LOSS: 0 PATHOLOGY: other (Right and left fallopian tubes to pathology) COMPLICATIONS: None Patient was transported to: PACU Patient's condition: stable Implants: None Indications: 42yo female?who had been using DepoProvera for contraception since 2018. Patient reports that her has declined a vasectomy and she made plans to proceed with a laparoscopic salpingectomy.? She as counseled about the permanent nature of a tubal sterilization and that her menses would return once the Depo Provera was stopped. Findings: Normal. Normal-appearing adnexa and uterus. Normal upper abdomen. Procedure Description: Patient was taken to the operating room where she was placed in the dorsal supine position and endotracheal anesthesia was administered without difficulty. SCDs were in place. A surgical timeout was performed. She was prepped and draped in the usual sterile fashion. The umbilical fold was infiltrated with 0.25% Marcaine without epinephrine and 12 mm vertical skin incision was made in the umbilicus. Through this incision a varies needle connected to carbon dioxide gas was inserted into the abdomen and intra-abdominal placement confirmed by drop in the intra-abdominal pressure. Once a pneumoperitoneum was established a 12 mm Visiport trocar was introduced into the abdomen under direct visualization. The patient was then placed in Trendelenburg and 2 sites on the abdomen approximately 6 cm diagonal to the right of and left of the umbilical incision were transilluminated the skin infiltrated with 0.25% Marcaine incised with a scalpel and under direct visualization two 5 mm ports were placed in the right and left lower quadrants respectively. The abdomen was inspected with the above-noted findings. The left fallopian tube located and followed out to its fimbriated end and a LigaSure electrocautery device was used to clamp cauterize and transect the fimbria from the left mesosalpinx to the level of the left uterine cornua. The left fallopian tube was then delivered through the 10 mm umbilical port and passed off of the operative field. A similar technique was carried out on the right fallopian tube without difficulty. The right fallopian tube was then delivered through the umbilical port. Both fallopian tube pedicles were inspected and noted to be hemostatic. Under direct visualization the two 5 mm ports were removed, pneumoperitoneum reduced, and the umbilical port removed. The fascia of the umbilical port site was reappr oximated with interrupted suture of 0 Vicryl. The skin of all trocar sites was reapproximated with 4-0 Monocryl and covered with dry sterile dressings. The patient was awakened extubated and transported to recovery area in stable condition. All sponge lap needle counts are correct x2.
== END 2022-10-22 16:30 | disposition home or self-care (01) ==
PROVIDERS: PCP Family Medicine; Visit Provider Obstetrics & Gynecology Gynecology
PROC: (CPT 58661; principal; 2022-10-22 13:15)
DX: Z30.2 Encounter for sterilization (principal); E03.9 Hypothyroidism, unspecified; F32.A Depression, unspecified
CPT/HCPCS: 58661; 88302; J0131; J1100; J1170; J1885; J2405; J3475

== ENCOUNTER 2023-01-12 03:05 | Outpatient (CLI) | payer OTHER, SELFPAY ==
[2023-01-12 14:42] LABS: TSH (W/Ref FT4) 3.45 uIU/mL (0.36-3.74)
== END 2023-01-12 03:06 | disposition home or self-care (01) ==
PROVIDERS: PCP Family Medicine; Visit Provider Nurse Practitioner Family
DX: E03.9 Hypothyroidism, unspecified (principal)
CPT/HCPCS: 36415; 84443

== ENCOUNTER → 2023-08-27 03:33 | Outpatient (CLI) | payer OTHER, SELFPAY ==
--- NOTE | 2023-08-27 12:20 | DI.MAMMO_ITS ---
Exam(s) MAMMO SCREENING EXAM: MAMMO SCREENING CLINICAL HISTORY: screening TECHNIQUE: Mammograms were interpreted according to the usual protocol including computer analysis w [employer] CAD system, tomosynthesis and C-view imaging. COMPARISON: 2022 FINDINGS: The breasts are composed of scattered fibroglandular densities, Breast Density category B. No suspicious masses or suspicious microcalcifications are seen. No skin thickening or abnormal axillary lymph nodes are seen. There has been no significant change from prior exams. IMPRESSION: BI-RADS Category 1, Negative mammogram Yearly screening mammography is recommended. Breast Density - Category B, scattered fibroglandular densities. A negative radiographic report should not delay biopsy if a dominant or clinically suspicious mass is present. Up to ten percent of cancers are not identified on mammography. A negative report may reinforce clinical impression. Adenosis and dense breasts may obscure an underlying neoplasm. False positive reports average 6 to 10%. Patient will receive a letter notifying them of these results.
== END ==
PROVIDERS: PCP Family Medicine; Visit Provider Obstetrics & Gynecology Gynecology
DX: Z12.31 Encounter for screening mammogram for malignant neoplasm of breast (principal)
CPT/HCPCS: 77063; 77067

== ENCOUNTER 2023-09-14 05:02 | Outpatient (CLI) | payer OTHER, SELFPAY ==
[2023-09-14 17:05] LABS: TSH (W/Ref FT4) 1.67 uIU/mL (0.36-3.74)
== END 2023-09-14 05:03 | disposition home or self-care (01) ==
LOC: LBO 05:02
PROVIDERS: PCP Family Medicine; Visit Provider Family Medicine
DX: E03.9 Hypothyroidism, unspecified (principal); E03.8 Other specified hypothyroidism
CPT/HCPCS: 36415; 84443

== ENCOUNTER 2024-09-02 07:45 | Outpatient (CLI) | payer OTHER, SELFPAY ==
--- NOTE | 2024-09-02 15:11 | DI.MAMMO_ITS ---
Exam(s) MAMMO SCREENING EXAM: MAMMO SCREENING CLINICAL HISTORY: screening TECHNIQUE: Bilateral full field digital CC and MLO mammographic images were obtained with 3D tomosyn thesis and utilizing computer aided detection (CAD). COMPARISON: Available for comparison. FINDINGS: Masses/Architectural Distortion: None seen. Microcalcifications: No suspicious pleomorphic-type are seen. Skin Thickening/Nipple Retraction: None. IMPRESSION: 1. No significant interval change with no specific features of malignancy noted. 2. Unless there is more urgent need, screening mammography is recommended, as per [place] [employer] guidelines. BI-RADS Category 1 - Negative Breast Density - Category B - Scattered areas of fibroglandular density Breast density category C or D implies that the patient has dense breast tissue. Dense breast tissue is very common and is not abnormal but dense breast tissue can make it harder to find cancer on a ma mmogram. Also, dense breast tissue may increase their breast cancer risk. This information about the result of the mammogram report was provided to the patient to raise their awareness. Use this report when you speak with the patient about their risks for breast cancer, which includes their family hist ory. At that time, you may recommend for more screening tests (Ultrasound or MRI) as they might be us eful based on their risk. A negative radiographic report should not delay biopsy if a dominant or clinically suspicious mass is present. Up to ten percent of cancers are not identified on mammography. A negative report may reinforce clinical impression. Adenosis and dense breasts may obscure an underlying neoplasm. False positive reports average 6 to 10%. Patient will receive a letter notifying them of these results.
== END 2024-09-02 08:05 ==
LOC: DI 07:46
PROVIDERS: PCP Family Medicine; Visit Provider Obstetrics & Gynecology
DX: Z12.31 Encounter for screening mammogram for malignant neoplasm of breast (principal); R92.323 Mammographic fibroglandular density, bilateral breasts
CPT/HCPCS: 77063; 77067

== ENCOUNTER 2024-09-14 09:37 | Outpatient (CLI) | payer OTHER, SELFPAY ==
[2024-09-14 13:06] LABS: TSH (W/Ref FT4) 3.33 uIU/mL (0.36-3.74)
== END 2024-09-14 09:38 | disposition home or self-care (01) ==
PROVIDERS: PCP Family Medicine; Referring Provider Family Medicine; Visit Provider Family Medicine
DX: E03.9 Hypothyroidism, unspecified (principal); Z23 Encounter for immunization; E03.8 Other specified hypothyroidism
CPT/HCPCS: 36415; 84443

== ENCOUNTER 2025-02-02 02:47 | Outpatient (CLI) | payer OTHER, SELFPAY ==
[2025-02-01 12:04] LABS: Abs Immature Grans 0.01 10^3/uL (0.0-0.06); HCT 46.0 % (36.0-46.0); HGB 15.1 g/dL (11.2-15.7); Immature Grans % 0.2 %; MCH 29.4 pg (27.0-33.0); MCHC 32.8 % (32.0-36.0); MCV 90 fL (80-95); MPV 9.7 fL (8.0-11.0); Platelet Count 338 10^3/uL (130-400); RBC 5.13 10^6/uL (3.93-5.22); RDW 12.2 % (11.7-14.6); RDW-SD 40.6 fL; WBC 6.64 10^3/uL (4.4-10.8)
[2025-02-01 12:14] LABS: INR 1.0 (0.9-1.1); Prothrombin Time 9.9 sec (9.1-11.1)
[2025-02-01 12:40] LABS: ALT 23 U/L (14-59); AST 16 U/L (15-37); Albumin 3.9 g/dL (3.4-5.0); Alkaline Phosphatase 80 U/L (46-116); Anion Gap 9.9 mmol/L (3-11); BUN 16 mg/dL (7-18); Bilirubin, Total 0.3 mg/dL (0.2-1.0); CO2 25.1 mmol/L (21.0-32.0); Calcium 8.9 mg/dL (8.5-10.1); Chloride 103 mmol/L (98-107); Estimated GFR 72.13 (mL/min/1.73m2); Glucose 88 mg/dL (74-106); Potassium 4.3 mmol/L (3.5-5.1); Sodium 138 mmol/L (136-145); Total Protein 7.4 g/dL (6.4-8.2); Uric Acid 6.0 mg/dL (2.6-6.0)
[2025-02-01 12:47] LABS: ESR 5 mm/hr (0-20)
== END 2025-02-02 02:48 | disposition home or self-care (01) ==
LOC: LBO 02:47
PROVIDERS: PCP Family Medicine; Visit Provider Family Medicine
DX: R23.3 Spontaneous ecchymoses (principal); M25.40 Effusion, unspecified joint
CPT/HCPCS: 36415; 80053; 85652; 84550; 85025; 85610; 86038; 86431